=== PATIENT | female | born 1980 | race Caucasian/White ===

== ENCOUNTER → 2020-03-26 15:28 | Outpatient (BNVA) | payer MEDICAID, SELFPAY | PROVIDERS: Visit Provider Counselor Professional | DX: F25.1 Schizoaffective disorder, depressive type (principal); F41.1 Generalized anxiety disorder; F15.20 Other stimulant dependence, uncomplicated | CPT/HCPCS: 90832 ==

== ENCOUNTER → 2020-03-30 07:56 | Outpatient (BNVA) | payer MEDICAID, SELFPAY | PROVIDERS: Visit Provider Psychiatry & Neurology Psychiatry | DX: F33.1 Major depressive disorder, recurrent, moderate (principal); F43.12 Post-traumatic stress disorder, chronic; F60.9 Personality disorder, unspecified; F29 Unspecified psychosis not due to a substance or known physiological condition; F40.01 Agoraphobia with panic disorder; G47.00 Insomnia, unspecified; D53.9 Nutritional anemia, unspecified; Z00.8 Encounter for other general examination; E63.9 Nutritional deficiency, unspecified; E63.8 Other specified nutritional deficiencies; F15.21 Other stimulant dependence, in remission; F51.01 Primary insomnia | CPT/HCPCS: 99205 ==

== ENCOUNTER → 2020-04-12 14:15 | Outpatient (BNVA) | payer MEDICAID, SELFPAY | PROVIDERS: Visit Provider Counselor Professional | DX: F25.1 Schizoaffective disorder, depressive type (principal); F41.1 Generalized anxiety disorder; F15.20 Other stimulant dependence, uncomplicated; F15.10 Other stimulant abuse, uncomplicated | CPT/HCPCS: 90832 ==